=== PATIENT | male | born 1965 | race Caucasian/White ===

== ENCOUNTER → 2025-05-01 | Outpatient (CLI) | payer MEDICARE ==
--- NOTE | 2025-05-01 12:03 | US ---
EXAMINATION TYPE: US abdomen complete DATE OF EXAM: 05/01/2025 COMPARISON: NONE CLINICAL INDICATION: Male, 59 years old with history of R79.89 ELEVATED LFTs, N28.9; Elevated LFTs. S onographer notes: Patient states his doctor saw a lesion/abnormality on left kidney. History of denise cystectomy. TECHNIQUE: Grayscale and color Doppler imaging of the abdomen was performed. FINDINGS: EXAM MEASUREMENTS: Liver Length: 16.5 cm Gallbladder: Surgically absent CBD: 0.3 cm, color Doppler imaging was utilized to isolate the common bile duct for measurement. Spleen: 11.9 cm Right Kidney: 12.4 x 6.0 x 5.5 cm Left Kidney: 12.1 x 6.4 x 6.7 cm [employer] NOTES: Exam very limited by overlying bowel gas, patient body habitus, and intercostal sc anning. Pancreas: Portions visualized wnl, tail obscured by overlying bowel gas Liver: Echogenic and attenuating. Gallbladder: Surgically absent Evidence for sonographic Au's sign: No CBD: wnl Spleen: wnl Right Kidney: wnl, No hydronephrosis, calculi or masses seen Left Kidney: A 1.1 cm midpole echogenic focus. No hydronephrosis. Upper IVC: wnl Abd Aorta: Portions visualized wnl, proximal portion obscured by bowel gas. IMPRESSION: 1. Severe hepatic steatosis. Appropriate clinical management is advised. 2. Status post cholecystectomy. No biliary ductal dilatation. 3. There may be a nonobstructing 1.1 cm left midpole renal stone. [facility], , 05/01/2025 12:01 PM
== END | disposition home or self-care (01) ==
LOC: RADUSWWP 09:08
PROVIDERS: ATTEND Family Medicine
DX: K76.0 Fatty (change of) liver, not elsewhere classified (principal); R79.89 Other specified abnormal findings of blood chemistry; N28.9 Disorder of kidney and ureter, unspecified; Z90.49 Acquired absence of other specified parts of digestive tract
CPT/HCPCS: 76700